=== PATIENT | male | born 1975 | race Two or more races ===

== ENCOUNTER 2024-09-05 05:06 | Day surgery (SDC) | payer OTHER ==
[~2024-09-05 05:06] MED LIST: TAMS0.4C PO; TOPROL XL25 M1 PO
[2024-09-05] MEDS ORDERED: CEFTRIAXONE SODIUM 2,000 MG VIAL IV ONE (08:15)
[2024-09-05] MEDS ORDERED: DIBUCAINE 30 GM TUBE RECTAL ONE (08:15)
[2024-09-05] MEDS ORDERED: POVIDONE-IODINE 118 ML BOTT TOP ONE (08:15)
[2024-09-05] MEDS ORDERED: HEMOSTATIC MATRIX 1 KIT KIT TOP ONE (08:15)
[2024-09-05] MEDS ORDERED: BUPIVACAINE HCL 30 ML VIAL IJ ONE (08:15)
[2024-09-05] MEDS ORDERED: LIDOCAINE HCL 1%/EPINEPHRINE 20ML VIAL IJ ONE (08:15)
[2024-09-05] MEDS ORDERED: METRONIDAZOLE/SODIUM CHLORIDE 500 MG/100 ML PIGGYBACK IV ONE ×2 (08:15)
[2024-09-05] MEDS ORDERED: OXYCODONE HCL5 M1 PO (08:53)
[2024-09-05] MEDS ORDERED: TAMSULOSIN HCL 0.4 MG CAP PO ONE (09:00)
== END 2024-09-05 11:00 | disposition home or self-care (01) ==
LOC: CIR.AMB 05:06
PROVIDERS: ATTEND Surgery
DX: K64.2 Third degree hemorrhoids (principal); K64.4 Residual hemorrhoidal skin tags; K64.8 Other hemorrhoids; Z88.6 Allergy status to analgesic agent